=== PATIENT | male | born 1945 | race Caucasian/White ===

== ENCOUNTER 2023-08-20 14:52 | Emergency (ER) | payer OTHER, SELFPAY ==
[2023-08-20 15:05] VITALS: BP 95/61; PULSE 60; RESP 16; TEMP 36.6; O2SAT 95
--- NOTE | 2023-08-20 15:18 | ED.EAR ---
HPI - Ear Problem General Chief complaint: Ear Stated complaint: Ear Pain Time Seen by Provider: 08/20/23 15:15 Source: patient, RN notes reviewed and old records reviewed Mode of arrival: ambulatory Limitations: no limitations History of Present Illness HPI Narrative: 77 year old male presents to [facility] and was told to come to the clinic to get the wax removed from his ears. Patient was told that he had some wax to his right ear but left ear was occluded with wax. Patient reports that his hearing is decreased even more that usual to his left ear. Patient denies any pain to his ears. Patient denies any drainage from ears MD Complaint: other (ears are plugged) Location: bilateral Discharge from ear: Reports no Associated symptoms ear: decreased hearing Treatment prior to arrival: none Related Data Home Medications Medication Instructions Recorded Confirmed amlodipine 5 mg tablet 5 mg PO BID 08/20/23 08/20/23 apixaban 5 mg tablet (Eliquis) 5 mg PO BID 08/20/23 08/20/23 atorvastatin 80 mg tablet 80 mg PO DAILY 08/20/23 08/20/23 carvedilol 25 mg tablet 25 mg PO BID 08/20/23 08/20/23 ezetimibe 10 mg tablet 10 mg PO DAILY 08/20/23 08/20/23 folic acid 1 mg tablet 1 mg PO DAILY 08/20/23 08/20/23 furosemide 20 mg tablet 20 mg PO BID 08/20/23 08/20/23 hydralazine 10 mg tablet 10 mg PO DIRECTED 08/20/23 08/20/23 isosorbide mononitrate 30 mg 30 mg PO DAILY 08/20/23 08/20/23 tablet,extended release 24 hr levocetirizine 5 mg tablet 5 mg PO HS 08/20/23 08/20/23 methotrexate sodium 2.5 mg tablet 2.5 mg PO DIRECTED 08/20/23 08/20/23 potassium chloride 20 mEq 20 meq PO BID 08/20/23 08/20/23 tablet,extended release(part/cryst) (Klor-Con M) Allergies Allergy/AdvReac Type Severity Reaction Status Date / Time No Known Allergies Allergy Verified 08/20/23 15:23 Review of Systems Review of Systems: CONSTITUTIONAL: Denies fever, chills, or sweats. EYES: Denies visual changes, redness, or discharge. ENT: Denies rhinorrhea, congestion, sore throat, or otalgia, reports decreased hearing especially left ear,. CARDIOVASCULAR: Denies chest pain, palpitations, or edema. RESPIRATORY: Denies cough or dyspnea. GASTROINTESTINAL: Denies abdominal pain, nausea, vomiting, or diarrhea. GENITOURINARY: Denies dysuria or hematuria. SKIN: Denies rash or itching. MUSCULOSKELETAL: Denies back pain, joint pain, or myalgia. NEUROLOGIC: Denies headache, numbness, or weakness. PSYCHIATRIC: Denies anxiety or depression. 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 There is no relevant family history pertinent to the presenting complaint Exam Narrative: GENERAL: Well-appearing, well-nourished, and in no acute distress. HEAD: Normocephalic, atraumatic. EYES: PERRLA and EOMI. ENT: Nares clear, no rhinorrhea or epistaxis. Mucous membranes moist.Right TM has small amount of wax noted TM with dull light reflex, Left TM completed occluded with wax, unable to view TM see procedure note NECK: Supple. no lymphadenopathy CHEST: Clear to auscultation. No respiratory distress.no cough noted SAO2 95% on room air HEART: Regular rate and rhythm. No murmur he
== END 2023-08-20 15:36 | disposition home or self-care (01) ==
PROVIDERS: Emergency Provider Registered Nurse
DX: H61.23 Impacted cerumen, bilateral (principal); Z87.891 Personal history of nicotine dependence; E78.00 Pure hypercholesterolemia, unspecified; I10 Essential (primary) hypertension; M06.9 Rheumatoid arthritis, unspecified; Z86.73 Personal history of transient ischemic attack (TIA), and cerebral infarction without residual deficits
CPT/HCPCS: 69209; 99212; G0463